=== PATIENT | female | born 1990 | race Caucasian/White ===

== ENCOUNTER → 2022-04-29 11:28 | Outpatient (CLI) | payer OTHER, SELFPAY ==
--- NOTE | ~2022-04-29 | XR_ITS ---
XR foot LT standing 2V 04/29/2022 12:03 Indication: Left foot pain Procedure: 2 views left foot Comparison: No prior studies for comparison. Findings: There is anatomic alignment. No fracture or traumatic malalignment. Lisfranc joint intact. No significant soft tissue abnormality. No foreign body. Impression: 1: No significant bone or joint abnormality. Reviewed, dictated and finalized at location A. Impression: 1: No significant bone or joint abnormality.
== END ==
PROVIDERS: PCP Internal Medicine; Visit Provider Internal Medicine
DX: M79.674 Pain in right toe(s) (principal)
CPT/HCPCS: 73620

== ENCOUNTER → 2022-07-15 10:19 | Outpatient (CLI) | payer OTHER, SELFPAY ==
--- NOTE | ~2022-07-15 | US_ITS ---
EXAMINATION: US pelvic complete DATE: 07/15/2022 10:34 INDICATION: Irregular menstruation Comparison:Ultrasound dated 03/20/2018 TECHNIQUE: Multiple transabdominal sonographic images of the pelvis performed. FINDINGS: The uterus measures 6.8 x 2.2 x 3.8 cm. The endometrial complex measures 5.5 mm. The right ovary measures 2.6 x 2 x 1.9 cm and the left ovary measures 2.4 x 1.9 x 2.5 cm. There are small follicles in each ovary. Normal doppler signal in both ovaries. There is no free fluid in the pelvis. There are no abnormal masses seen on either side. IMPRESSION: 1. Unremarkable pelvic ultrasound. Reviewed, dictated and finalized at location A. [employer]
== END ==
PROVIDERS: PCP Family Medicine; Visit Provider Nurse Practitioner
DX: E28.2 Polycystic ovarian syndrome (principal)
CPT/HCPCS: 76856